=== PATIENT | male | born 1945 | race Caucasian/White ===

== ENCOUNTER 2021-10-08 07:48 | Emergency (ER) | payer MEDICARE, OTHER ==
[~2021-10-08] VITALS: Ht 172.7 cm; Wt 89.8 kg
[2021-10-08] MEDS ORDERED: ACETAMINOPHEN 325 MG TAB PO ONE (08:30)
[2021-10-08] MEDS ORDERED: ACETAMINOPHEN 325 MG TAB ONE (08:59)
[2021-10-08] MEDS ORDERED: PREDNISONE20 MG PO (12:03)
[2021-10-08 12:06] VITALS: BP 186/79
== END 2021-10-08 12:08 | disposition home or self-care (01) ==
LOC: FSED 08:03
DX: M79.661 Pain in right lower leg (principal); I80.3 Phlebitis and thrombophlebitis of lower extremities, unspecified; R06.02 Shortness of breath; J45.901 Unspecified asthma with (acute) exacerbation; I10 Essential (primary) hypertension; I25.10 Atherosclerotic heart disease of native coronary artery without angina pectoris; R94.31 Abnormal electrocardiogram [ECG] [EKG]
CPT/HCPCS: 71046; 80053; 82553; 84484; 85025; 85379; 93005; 93971; 99283

== ENCOUNTER 2022-02-19 13:27 | Observation (INO) | payer MEDICARE, OTHER ==
[~2022-02-19] VITALS: Ht 172.7 cm; Wt 88.9 kg
[~2022-02-19 13:27] MED LIST: PREDNISONE20 MG PO
[2022-02-19] MEDS ORDERED: VERAPAMIL ER120 MG PO (14:10)
[2022-02-19] MEDS ORDERED: PROBIOTIC & AC1 EACH PO (14:10)
[2022-02-19] MEDS ORDERED: WIXELA 500-501 EACH INH (14:10)
[2022-02-19] MEDS ORDERED: ATORVASTATIN CA10 MG PO (14:10)
[2022-02-19] MEDS ORDERED: FLOMAX0.4 MG PO (14:10)
[2022-02-19] MEDS ORDERED: ASPIRIN EC81 MG PO (14:10)
[2022-02-19] MEDS ORDERED: ZYRTEC10 M3 (14:10)
[2022-02-19] MEDS ORDERED: SPIRIVA18 MCG INH (14:10)
[2022-02-19] MEDS ORDERED: LUMIFY2.5 ML (14:10)
[2022-02-19] MEDS ORDERED: MEGA MULTI FOR1 EAC1 (14:10)
[2022-02-19] MEDS ORDERED: DEXILANT60 MG (14:10)
[2022-02-19] MEDS ORDERED: CITALOPRAM HBR20 MG PO (14:10)
[2022-02-19] MEDS ORDERED: MONTELUKAST SOD10 MG PO (14:10)
[2022-02-19] MEDS ORDERED: CLONIDINE HCL0.1 MG PO (14:10)
[2022-02-19] MEDS ORDERED: IPRATROPIU0.2 MG/1 M INH (14:10)
[2022-02-19] MEDS ORDERED: IPRAT-ALBUT 0.5-3 ML (14:10)
[2022-02-19] MEDS ORDERED: D3-5000125 MCG (14:10)
[2022-02-19] MEDS ORDERED: PROAIR HFA INH8.5 GM (14:10)
[2022-02-19] MEDS ORDERED: CLONIDINE HCL 0.1 MG TAB ONE (14:55)
[2022-02-19] MEDS ORDERED: SODIUM CHLORIDE FLUSH 10 ML SYR INJ PRN (15:00)
[2022-02-19] MEDS ORDERED: CLONIDINE HCL 0.2 MG TAB PO NR (15:00)
[2022-02-19] MEDS ORDERED: ASPIRIN 81 MG CHEW TAB PO ONE (15:00)
[2022-02-19 17:40] VITALS: BP 142/84
[2022-02-19 17:56] VITALS: BP 142/84
[2022-02-19 18:02] VITALS: BP 142/84
[2022-02-19 18:45] LABS: CREATINE KINASE 27 IU/L (30-200)
[2022-02-19] MEDS ORDERED: ACETAMINOPHEN 325 MG TAB PO PRN (18:45)
[2022-02-19] MEDS ORDERED: HYDRALAZINE HCL 20 MG/ML VIAL IV PRN (18:45)
[2022-02-19] MEDS ORDERED: ONDANSETRON HCL INJ 2MG/ML 2ML 2 MG/ML VIAL IV PRN (18:45)
[2022-02-19] MEDS ORDERED: POLYETHYLENE GLYCOL 3350 17 GM PACK PO PRN (18:45)
[2022-02-19] MEDS: DOCUSATE SODIUM 100 MG CAP PO SCH (19:14)
[2022-02-19] MEDS: SODIUM CHLORIDE 0.9% 500ML 500 ML IV SCH (19:14)
[2022-02-19] MEDS ORDERED: ALBUTEROL/IPRATROPIUM 3 ML NEB INH PRN (19:15)
[2022-02-19] MEDS ORDERED: ALBUTEROL SULFATE HFA 8GM INHALATION AEROSOL INH PRN (19:15)
[2022-02-19] MEDS ORDERED: IPRATROPIUM BROMIDE 0.02% 2.5 ML NEB INH ONE (19:15)
[2022-02-19 20:00] VITALS: BP 141/78
[2022-02-19] MEDS: SALMETEROL/FLUTICASONE 500/50 INH SCH (21:00)
[2022-02-19] MEDS ORDERED: ATORVASTATIN 10 MG TAB PO SCH (21:00)
[2022-02-19] MEDS: CLONIDINE HCL 0.1 MG TAB PO SCH (21:25)
[2022-02-19 23:51] LABS: CREATINE KINASE 24 IU/L (30-200)
[2022-02-20] VITALS: BP 139/84
[2022-02-20 00:17] LABS: CHOL/HDL RATIO 1.9 (3.9-4.7)
[2022-02-20 04:00] VITALS: BP 168/85
[2022-02-20] MEDS: SODIUM CHLORIDE 0.9% 500ML 500 ML IV SCH ×2 (05:08→16:14)
[2022-02-20 06:29] LABS: BASOPHILS % 0.4 % (0.0-1.0); EOSINOPHILS # (AUTO) 0.1 (0.0-0.4); EOSINOPHILS % 1.2 % (0.0-6.0); HEMATOCRIT 41.5 % (38.2-49.6); HEMOGLOBIN 13.5 g/dL (14.0-18.0); LYMPHOCYTES # (AUTO) 1.8 (1.0-3.2); LYMPHOCYTES % 24.1 % (18.0-39.1); MEAN CORPUSCULAR HEMOGLOBIN 32.8 pg (28-32); MEAN CORPUSCULAR HGB CONC 32.5 g/dL (31-35); MONOCYTES # (AUTO) 0.6 (0.2-0.8); MONOCYTES % 8.1 % (4.4-11.3); NEUTROPHILS % 65.8 % (38.7-80.0); PLATELET COUNT 217 x10e3/uL (140-360); RED BLOOD COUNT 4.11 x10e6/uL (4.3-5.7); RED CELL DISTRIBUTION WIDTH 13.2 % (11.7-14.4)
[2022-02-20 07:02] LABS: ALBUMIN 3.1 g/dL (3.5-5.0); ALBUMIN/GLOBULIN RATIO 1.1 (0.8-2.0); ANION GAP 11.5 mmol/L (8-16); CALCIUM 8.6 mg/dL (8.4-10.2); CREATININE, SERUM 1.26 mg/dL (0.72-1.25); POTASSIUM 4.5 mmol/L (3.5-5.1)
[2022-02-20] MEDS: CLONIDINE HCL 0.1 MG TAB PO SCH (08:22)
[2022-02-20 08:24] VITALS: BP 155/84
[2022-02-20] MEDS: ASPIRIN 325 MG TAB EC PO SCH ×2 (08:25→08:27)
[2022-02-20] MEDS: DOCUSATE SODIUM 100 MG CAP PO SCH ×2 (08:26→16:13)
[2022-02-20] MEDS: SALMETEROL/FLUTICASONE 500/50 INH SCH ×2 (08:27→19:30)
[2022-02-20] MEDS: FAMOTIDINE 20 MG/2 ML VIAL IV SCH ×2 (08:27→16:13)
[2022-02-20] MEDS ORDERED: CHOLECALCIFEROL 1,000 UNIT TAB PO SCH (09:00)
[2022-02-20] MEDS ORDERED: MONTELUKAST SODIUM 10 MG TAB PO SCH (09:00)
[2022-02-20] MEDS ORDERED: TAMSULOSIN HCL 0.4 MG CAP PO SCH (09:00)
[2022-02-20] MEDS ORDERED: PANTOPRAZOLE SOD 40 MG TABEC PO SCH (09:00)
[2022-02-20] MEDS ORDERED: BRIMONIDINE TARTRATE 0.15% OPTH DRPS 10ML BTL OP SCH (09:00)
[2022-02-20] MEDS ORDERED: TIOTROPIUM 18 MCG INH POWDER INH SCH (09:00)
[2022-02-20] MEDS ORDERED: MULTIVITAMINS/MINERALS TAB PO SCH (09:00)
[2022-02-20] MEDS ORDERED: LACTOBACILLUS ACIDOPHILUS CAPSULE PO SCH (09:00)
[2022-02-20] MEDS ORDERED: ASPIRIN 81 MG ENTERIC COATED PO SCH (09:00)
[2022-02-20] MEDS ORDERED: LORATADINE 10 MG TAB PO SCH (09:00)
[2022-02-20] MEDS ORDERED: CITALOPRAM HYDROBROMIDE 20 MG TAB PO SCH (09:00)
[2022-02-20] MEDS ORDERED: VERAPAMIL HCL 120 MG TABSR PO SCH (09:00)
[2022-02-20 09:28] VITALS: BP 155/84
[2022-02-20 11:35] LABS: CREATINE KINASE MB 0.5 ng/mL (0-5.0)
[2022-02-20 12:03] VITALS: BP 143/74
[2022-02-20 16:08] VITALS: BP 127/68
[2022-02-20] MEDS ORDERED: ASPIRIN ENTERI325 MG PO (18:50)
[2022-02-20] MEDS ORDERED: ONDANSETRON HCL 4 MG ORAL DISINTEGRATING TAB PO PRN (19:30)
[2022-02-21] MEDS ORDERED: FAMOTIDINE 20 MG TAB PO SCH (09:00)
== END 2022-02-20 20:28 | disposition home or self-care (01) ==
LOC: FSED 13:48 → ERHOLD 14:50 → MED/SURG2 17:30
PROVIDERS: ADMIT Internal Medicine; ATTEND Internal Medicine
DX: I16.0 Hypertensive urgency (principal); R00.1 Bradycardia, unspecified; E78.5 Hyperlipidemia, unspecified; I87.2 Venous insufficiency (chronic) (peripheral); K58.9 Irritable bowel syndrome, unspecified; J44.9 Chronic obstructive pulmonary disease, unspecified; I80.3 Phlebitis and thrombophlebitis of lower extremities, unspecified; K76.0 Fatty (change of) liver, not elsewhere classified; K21.9 Gastro-esophageal reflux disease without esophagitis; I25.10 Atherosclerotic heart disease of native coronary artery without angina pectoris; Z95.5 Presence of coronary angioplasty implant and graft; Z86.711 Personal history of pulmonary embolism; Z79.01 Long term (current) use of anticoagulants; Z86.718 Personal history of other venous thrombosis and embolism; N28.1 Cyst of kidney, acquired; Z20.822 Contact with and (suspected) exposure to COVID-19; I12.9 Hypertensive chronic kidney disease with stage 1 through stage 4 chronic kidney disease, or unspecified chronic kidney disease; N18.9 Chronic kidney disease, unspecified; N17.9 Acute kidney failure, unspecified; Z85.46 Personal history of malignant neoplasm of prostate; F32.A Depression, unspecified; Z79.899 Other long term (current) drug therapy
CPT/HCPCS: 36415 ×2; 71045; 76700; 80053 ×2; 80061; 82550 ×2; 82553 ×2; 82948; 83036; 83735; 83880; 84100; 84443; 84484 ×2; 85025 ×2; 93005; 93306; 93971; 94664; 94799; 97139; 99284; G0378 ×2; J7040 ×2; S0164; U0002